=== PATIENT | female | born 1980 | race Caucasian/White ===

== ENCOUNTER 2018-10-18 09:40 | Day surgery (SDC) | payer BC ==
[~2018-10-18 09:40] MED LIST: Dexamethasone 4 MG/ML SDV ONE; HYDROmorphone 0.5 MG/0.5 ML Syringe ONE; Lactated Ringers 1,000 ML IV SCH; Lidocaine 1%/Sod Bicarbonate in NS 8.4% 1 ML Syringe IDERM PRN; Midazolam 1 MG/ML 2 ML SDV ONE; Ondansetron 4 MG/2 ML SDV ONE; Propofol 200 MG/20 ML SDV ONE; Rocuronium 50 MG/5 ML Vial ONE; Sodium Chloride 0.9% 10 ML Syringe FLUSH PRN; ceFAZolin 1 GM Vial ONE; fentaNYL 250 MCG/5 ML SDV ONE
--- NOTE | 2018-10-18 10:13 | PCM.PREANE ---
Preanesthetic Assessment - Anesthesia/Transfusion/Family Hx Anesthesia History: Prior Anesthesia Without Reaction Family History of Anesthesia Reaction: No Transfusion History: No Prior Transfusion(s) - Review of Systems General: No Symptoms Pulmonary: No Symptoms Cardiovascular: Other (HTN, on meds) Other: Reports: Depression, Anxiety - Physical Assessment NPO Status Date: 10/17/18 NPO Status Time: 23:30 Pulse: 97 O2 Sat by Pulse Oximetry: 97 Respiratory Rate: 16 Blood Pressure: 153/96 Vital Signs: Last Vital Signs Temp 37.6 C 10/18/18 09:55 Pulse 97 10/18/18 09:55 Resp 16 10/18/18 09:55 BP 153/96 H 10/18/18 09:55 Pulse Ox 97 10/18/18 09:55 Weight: 92.76 kg ASA Class: 2 Mental Status: Alert & Oriented x3 Airway Class: Mallampati = 2 Dentition: Reports: Normal Dentition Thyro-Mental Finger Breadths: 3 Mouth Opening Finger Breadths: 3 ROM/Head Extension: Full Lungs: Clear to Auscultation, Normal Respiratory Effort - Lab Values: Laboratory Last Values WBC 9.76 K/mm3 (3.98-10.04) 10/13/18 10:34 RBC 5.24 M/mm3 (3.98-5.22) H 10/13/18 10:34 Hgb 15.0 gm/L (11.2-15.7) 10/13/18 10:34 Hct 46.5 % (34.1-44.9) H 10/13/18 10:34 MCV 88.7 fl (79.4-94.8) 10/13/18 10:34 MCH 28.6 pg (25.6-32.2) 10/13/18 10:34 MCHC 32.3 g/dl (32.2-35.5) 10/13/18 10:34 RDW Std Deviation 43.3 fL (36.4-46.3) 10/13/18 10:34 Plt Count 347 K/mm3 (182-369) 10/13/18 10:34 MPV 9.0 fl (9.4-12.3) L 10/13/18 10:34 Neut % (Auto) 67.6 % (34.0-71.1) 10/13/18 10:34 Lymph % (Auto) 19.2 % (19.3-51.7) L 10/13/18 10:34 [place] % (Auto) 9.8 % (4.7-12.5) 10/13/18 10:34 Eos % (Auto) 2.6 (0.7-5.8) 10/13/18 10:34 Baso % (Auto) 0.6 % (0.1-1.2) 10/13/18 10:34 Neut # (Auto) 6.60 K/mm3 (1.56-6.13) H 10/13/18 10:34 Lymph # (Auto) 1.87 K/mm3 (1.18-3.74) 10/13/18 10:34 [place] # (Auto) 0.96 K/mm3 (0.24-0.36) H 10/13/18 10:34 Eos # (Auto) 0.25 K/mm3 (0.04-0.36) 10/13/18 10:34 Baso # (Auto) 0.06 K/mm3 (0.01-0.08) 10/13/18 10:34 Creatinine 1.0 mg/dL (0.55-1.02) 10/13/18 10:34 Est Cr Clr Drug Dosing TNP 10/13/18 10:34 Estimated GFR (MDRD) > 60 mL/min (>60) 10/13/18 10:34 Urine Color Yellow (Yellow) 10/13/18 10:34 Urine Appearance Clear (Clear) 10/13/18 10:34 Urine pH 7.0 (5.0-8.0) 10/13/18 10:34 Ur Specific [place] 1.015 (1.005-1.030) 10/13/18 10:34 Urine Protein Negative (Negative) 10/13/18 10:34 Urine Glucose (UA) Negative (Negative) 10/13/18 10:34 Urine Ketones Negative (Negative) 10/13/18 10:34 Urine Occult Blood Trace-intact (Negative) H 10/13/18 10:34 Urine Nitrite Negative (Negative) 10/13/18 10:34 Urine Bilirubin Negative (Negative) 10/13/18 10:34 Urine Urobilinogen 0.2 (0.2-1.0) 10/13/18 10:34 Ur Leukocyte Esterase Negative (Negative) 10/13/18 10:34 Urine HCG, Qual Negative (NEGATIVE) 10/18/18 09:49 - Allergies Allergies/Adverse Reactions: Allergies Allergy/AdvReac Type Severity Reaction Status Date / Time codeine Allergy Stomach Verified 10/17/18 12:34 Upset sulfamethoxazole Allergy Rash Verified 10/17/18 12:34 [From Bactrim] trimethoprim [From Bactrim] Allergy Rash Verified 10/17/18 12:34 - Blood Blood Available: No Product(s) Available: None - Anesthesia Plan Pre-Op Medication Ordered: None - Acknowledgements Anesthesia Type Planned: General Anesthesia Pt an Appropriate Candidate for the Planned Anesthesia: Yes Alternatives and Risks of Anesthesia Discussed w Pt/Guardian: Yes Pt/Guardian Understands and Agrees with Anesthesia Plan: Yes PreAnesthesia Questionnaire HEENT History: Reports: Other (See Below) Other HEENT History: dental abcess, wears glasses Cardiovascular History: Reports: Hypertension Respiratory History: Reports: Bronchitis, Recurrent Gastrointestinal History: Reports: None Genitourinary History: Reports: UTI, Recurrent GENETIC ENGINEER History: Reports: , Spontaneous , Other (See Below) Other OB/BYN History: dysmenorrhea, hematuria, menorrhagia, vaginal itching, yeast infection, , SAB Musculoskeletal History: Reports: None Neurological History: Reports: None Psychiatric History: Reports: Anxiety, Panic Attack, Other (See Below) Other Psychiatric History: fatigue Endocrine/Metabolic History: Reports: Other (See Below) Other Endocrine/Metabolic History: female hirsutism, hair loss, thyroid nodule, thyromegaly Hematologic History: Reports: None Immunologic History: Reports: None Oncologic (Cancer) History: Reports: None Dermatologic History: Reports: None - Past Surgical History Head Surgeries/Procedures: Reports: None HEENT Surgical History: Reports: Oral Surgery Cardiovascular Surgical History: Reports: None Respiratory Surgical History: Reports: None GI Surgical History: Reports: None Female Surgical History: Reports: D&C Male Surgical History: Reports: None Endocrine Surgical History: Reports: None Neurological Surgical History: Reports: None Musculoskeletal Surgical History: Reports: None Oncologic Surgical History: Reports: None Dermatological Surgical History: Reports: None - SUBSTANCE USE Smoking Status *Q: Former Smoker Recreational Drug Use History: No - HOME MEDS Home Medications: Home Meds ALPRAZolam [Alprazolam] 0.5 mg PO TID PRN 10/17/18 [History] Cetirizine [ZyrTEC] 10 mg PO DAILY PRN 10/17/18 [History] DULoxetine HCl [Duloxetine HCl] 60 mg PO DAILY 10/17/18 [History] Docusate Sodium [Colace] 100 mg PO DAILY 10/17/18 [History] Ibuprofen 200 - 600 mg PO Q6H PRN 10/17/18 [History] Lisinopril 40 mg PO DAILY 10/17/18 [History] - CURRENT (IN HOUSE) MEDS Current Meds: Current Medications Lactated Ringer's (Ringers, Lactated) 1,000 mls @ 125 mls/hr IV ASDIRECTED FRANDY Stop: 10/18/18 23:00 Lidocaine/Sodium Bicarbonate (Buffered Lidocaine 1% In Ns 8.4%) 0.25 ml IDERM ONETIME PRN PRN Reason: Prior to IV Start Stop: 10/18/18 18:00 Sodium Chloride (Saline Flush) 10 ml FLUSH ASDIRECTED PRN PRN Reason: Keep Vein Open Stop: 10/18/18 18:00 Discontinued Medications Cefazolin Sodium (Ancef) Confirm Administered Dose 2 gm .ROUTE .STK-MED ONE Stop: 10/18/18 08:14 Dexamethasone (Dexamethasone) Confirm Administered Dose 4 mg .ROUTE .STK-MED ONE Stop: 10/18/18 08:14 Fentanyl (Sublimaze) Confirm Administered Dose 250 mcg .ROUTE .STK-MED ONE Stop: 10/18/18 08:15 Hydromorphone HCl (Dilaudid) Confirm Administered Dose 0.5 mg .ROUTE .STK-MED ONE Stop: 10/18/18 08:15 Midazolam HCl (Versed 1 Mg/Ml) Confirm Administered Dose 2 mg .ROUTE .STK-MED ONE Stop: 10/18/18 08:15 Ondansetron HCl (Zofran) Confirm Administered Dose 4 mg .ROUTE .STK-MED ONE Stop: 10/18/18 08:14 Propofol (Diprivan 20 Ml) Confirm Administered Dose 200 mg .ROUTE .STK-MED ONE Stop: 10/18/18 08:15 Rocuronium [place] (Zemuron) Confirm Administered Dose 50 mg .ROUTE .STK-MED ONE Stop: 10/18/18 08:14
[2018-10-18] MEDS: Lidocaine 1% with EPINEPHrine 1:100,000 20 ML MDV ONE ×2 (12:08→12:23)
[2018-10-18] MEDS: Sodium Chloride 0.9% 50 ML SDV ONE ×2 (12:08→12:23)
[2018-10-18] MEDS ORDERED: Phenylephrine/Normal Saline 100 MCG/ML 10 ML Syringe ONE (12:17)
[2018-10-18] MEDS ORDERED: HYDROmorphone 0.5 MG/0.5 ML Syringe ONE (12:29)
[2018-10-18] MEDS ORDERED: Glycopyrrolate 0.2 MG/ML SDV ONE (12:49)
[2018-10-18] MEDS ORDERED: Neostigmine Methylsulfate 1 MG/ML 5 ML Syringe ONE (12:49)
[2018-10-18] MEDS ORDERED: Acetaminophen/oxyCODONE 325-5 MG Tab PO PRN (12:59)
[2018-10-18] MEDS ORDERED: Ondansetron 4 MG/2 ML SDV IVPUSH PRN ×2 (12:59→13:25)
[2018-10-18] MEDS ORDERED: Ketorolac 30 MG/ML SDV IVPUSH SCH (13:00)
[2018-10-18] MEDS ORDERED: Propofol 200 MG/20 ML SDV ONE (13:03)
--- NOTE | 2018-10-18 13:06 | PCM.OPNOTE ---
- General Post-Op/Procedure Note Date of Surgery/Procedure: 10/18/18 Operative Procedure(s): Total vaginal strictly with bilateral salpingectomy and subfascial mid-urethral sling procedure Findings: Uterus upper limits normal size. Fallopian tubes and ovaries appeared normal. Patient has a grade 1 cystocele Pre Op Diagnosis: 1. Menorrhagia. 2. Dysmenorrhea. 3. Stress urinary incontinence Post-Op Diagnosis: Same Anesthesia Technique: General ET Tube Other Anesthesia Type: Lidocaine quarter percent with [id number] mL total local Primary Surgeon: Jarvis Rois Secondary Surgeon: Geovany Hubbard Anesthesia Provider: Vaishnavi Kaye Veneer Joiner: Mitchell Lindsey Reason Veneer Joiner Was Necessary: Retraction, assistance, patient safety, quality. Pathology: Uterus, bilateral fallopian tubes in one specimen container Fluid Replacement, Intraop: 1,900 Output, Urine Amount: 200 EBL in mLs: 25 Complications: None Condition: Good Free Text/Narrative:: Surgery duration: 44 minutes Procedure: The patient was placed in supine position on the operating table. She was appropriately consented. General endotracheal anesthesia was accomplished. After positioning, and adequate prep and drape, the procedure was then performed. Sterile speculum was placed in the vagina and cervix was visualized. Cervix was injected with [lidocaine quarter percent with epinephrine ]. [20 cc] used. A full circumference incision was made in the cervical epithelium. The bladder was pushed well back off cervix. Posterior cul-de-sac was then entered sharply without problems. Left uterosacral was crossclamped with a Enseal vessel closure system. The left uterosacral and then the right uterosacral ligament pedicles were developed using the Enseal system. The anterior cul-de-sac was then entered without problems and the uterine vasculature, cardinal ligament and broad ligament then developed using Enseal vessel closure system. The uterus was inverted at this time and upper broad ligament fallopian tube pedicles were crossclamped with Kaveh clamps. Specimen was totally removed. Both these pedicles were then secured with a Kaveh stitch of #1 Vicryl. Left and right fallopian tube were visualized and found to be within normal limits. . Using Enseal vessel closure system both fallopian tubes were then removed and sent with the specimen. The posterior vaginal cuff was run with an 0 Monocryl suture from approximately 2:00 to 10 o'clock position for hemostatic reasons. The patient was found to be hemostatically intact at this time, both ovaries appeared normal and were left in place. Vaginal cuff was closed with running locked suture of 0 MonocrylThe patient's left right. Sub-Fascial, mid urethral sling procedure was then performed. Her bladder was drained with a red rubber catheter. 200 mL of normal urine was removed. The epithelium overlying the urethra was grasped approximately 1 cm from the urethral meatus and approximately 2 cm cephalad from there with Allis clamps. The area of the skin overlying the medial aspect of the obturator foramen on each side just posterior to the origin the abductor longus muscle was marked with a marking pen. These 2 areas and the sub-fascial layer of the vaginal were then infiltrated with lidocaine quarter percent with epinephrine total of approximately 10 mL was used. incisions made in the epithelium overlying the urethra and 2 small stab wounds 3 mm in length were made in the 2 areas of the panty line of the patient. The subfascial planes were adequately dissected bilaterally to allow placement of the mesh. The helical adapter was then placed through the obturator on patient's left side and brought out through the vaginal subfascial plane. Mesh was attached to it and then was pulled back through the obturator foramen. Same was done on the right side. Mesh was then snugged up to the urethra. A Heger Dilator 15 mm in diameter was used as a spacer to place the mesh in a tension- free position. At this point the mesh was cut off at the skin surface and the dilator was removed. The midline epithelium was closed with a short running suture of 3-0 Monocryl. Skin incisions were closed with Dermabond skin glue. These bladder was filled with approximately 240 cc of normal saline to facilitate voiding and therefore discharge home. The patient was returned to supine position, awakened from general endotracheal anesthesia and was discharged from operating room in good.
[2018-10-18] MEDS ORDERED: HYDROmorphone 0.5 MG/0.5 ML Syringe IVPUSH PRN (13:25)
[2018-10-18] MEDS ORDERED: fentaNYL 100 MCG/2 ML SDV IVPUSH PRN (13:25)
[2018-10-18] MEDS ORDERED: diphenhydrAMINE 50 MG/ML SDV IVPUSH PRN (13:25)
--- NOTE | 2018-10-18 13:25 | PCM.POSTAN ---
POST ANESTHESIA ASSESSMENT - MENTAL STATUS Mental Status: Alert, Oriented - VITAL SIGNS Pulse Rate: 110 SaO2: 99 Resp Rate: 18 Blood Pressure: 158/94 Temperature: 37.2 C - RESPIRATORY Respiratory Status: Respiratory Rate WNL, Airway Patent, O2 Saturation Stable, Supplemental Oxygen - CARDIOVASCULAR CV Status: Pulse Rate WNL, Blood Pressure Stable - GASTROINTESTINAL GI Status: No Symptoms - PAIN Pain Score: 0 - POST OP HYDRATION Hydration Status: Adequate & Stable
[2018-10-18] MEDS ORDERED: Ibuprofen 600 MG Tab PO PRN ×2 (14:00→19:00)
[2018-10-18] MEDS: Labetalol 100 MG/20 ML MDV IVPUSH PRN ×2 (14:05→14:23)
[2018-10-18] MEDS ORDERED: Midazolam 1 MG/ML 2 ML SDV IVPUSH PRN (14:09)
== END 2018-10-18 18:00 | disposition home or self-care (01) ==
LOC: JD.SDS 09:40
PROVIDERS: ATTEND Obstetrics & Gynecology
DX: N80.0 Endometriosis of uterus (principal); N83.8 Other noninflammatory disorders of ovary, fallopian tube and broad ligament; N39.3 Stress incontinence (female) (male); N81.10 Cystocele, unspecified; I10 Essential (primary) hypertension; F41.8 Other specified anxiety disorders; L68.0 Hirsutism; Z88.5 Allergy status to narcotic agent; Z88.2 Allergy status to sulfonamides; Z88.1 Allergy status to other antibiotic agents; Z87.891 Personal history of nicotine dependence; Z79.899 Other long term (current) drug therapy
CPT/HCPCS: 00944; 36415; 81003; 81025; 82565; 85025; 86850; 86900; 86901; 87086; A9270-GY; C1771; J0690; J1100; J1170; J2250; J2370; J2405; J2704; J2710; J3010; J3490; J7120

== ENCOUNTER 2020-08-05 09:20 | Emergency (ER) | payer BC ==
--- NOTE | 2020-08-05 09:41 | EDM.PDOC ---
ED HPI GENERAL MEDICAL PROBLEM - General Chief Complaint: Chest Pain Stated Complaint: CHEST PAIN/HIGH BP Time Seen by Provider: 08/05/20 09:38 - History of Present Illness INITIAL COMMENTS - FREE TEXT/NARRATIVE: 40-year-old female presents the emergency room with chest pain. This pain has been going on for the last couple of days. Seems to be worse with deep breathing. It is substernal she denies it being a burning sensation. She has a hard time describing it but it could be achy pressure may be sharp at times. She has not had any other chest problems recently however did have a headache the other night that she attributes to being an ocular migraine she woke up the next morning and everything was fine with regards the headache. She is not have any reflux symptoms. She does not have an active cough at this time . Patient has longstanding hypertension and a strong family history of hypertension her father just from a CVA and he had long standing hypertension as well. Middle Chest Pain Score (Numeric/FACES): 5 - Related Data Allergies Allergy/AdvReac Type Severity Reaction Status Date / Time codeine Allergy Stomach Verified 08/05/20 09:29 Upset sulfamethoxazole Allergy Rash Verified 08/05/20 09:29 [From Bactrim] trimethoprim [From Bactrim] Allergy Rash Verified 08/05/20 09:29 Home Meds: Home Meds ALPRAZolam [Alprazolam] 0.5 mg PO TID PRN 10/17/18 [History] Cetirizine [ZyrTEC] 10 mg PO DAILY PRN 10/17/18 [History] DULoxetine HCl [Duloxetine HCl] 60 mg PO DAILY 10/17/18 [History] Docusate Sodium [Colace] 100 mg PO DAILY 10/17/18 [History] Lisinopril 40 mg PO DAILY 10/17/18 [History] Potassium Chloride [Klor-Con M20] 20 meq PO BID #2 tab.er 08/05/20 [Rx] Past Medical History HEENT History: Reports: Other (See Below) Other HEENT History: dental abcess, wears glasses Cardiovascular History: Reports: Hypertension Respiratory History: Reports: Bronchitis, Recurrent Gastrointestinal History: Reports: None Genitourinary History: Reports: UTI, Recurrent SENIOR DEVOPS ENGINEER History: Reports: , Spontaneous , Other (See Below) Other SENIOR DEVOPS ENGINEER History: dysmenorrhea, hematuria, menorrhagia, vaginal itching, yeast infection, , SAB Musculoskeletal History: Reports: None Neurological History: Reports: None Psychiatric History: Reports: Anxiety, Panic Attack, Other (See Below) Other Psychiatric History: fatigue Endocrine/Metabolic History: Reports: Other (See Below) Other Endocrine/Metabolic History: female hirsutism, hair loss, thyroid nodule, thyromegaly Hematologic History: Reports: None Immunologic History: Reports: None Oncologic (Cancer) History: Reports: None Dermatologic History: Reports: None - Past Surgical History Head Surgeries/Procedures: Reports: None HEENT Surgical History: Reports: Oral Surgery Cardiovascular Surgical History: Reports: None Respiratory Surgical History: Reports: None GI Surgical History: Reports: None Female Surgical History: Reports: D&C Endocrine Surgical History: Reports: None Neurological Surgical History: Reports: None Musculoskeletal Surgical History: Reports: None Oncologic Surgical History: Reports: None Dermatological Surgical History: Reports: None Social & Family History - Tobacco Use Tobacco Use Status *Q: Light Tobacco User Years of Tobacco use: 20 Packs/Tins Daily: 0.2 - Caffeine Use Caffeine Use: Reports: Coffee - Recreational Drug Use Recreational Drug Use: No ED ROS GENERAL - Review of Systems Review Of Systems: See Below Constitutional: Reports: No Symptoms HEENT: Reports: No Symptoms Respiratory: Denies: Shortness of Breath, Wheezing, Cough Cardiovascular: Reports: Chest Pain, Blood Pressure Problem. Denies: Dyspnea on Exertion, Edema Endocrine: Reports: No Symptoms GI/Abdominal: Reports: No Symptoms : Reports: No Symptoms Musculoskeletal: Reports: No Symptoms Neurological: Reports: No Symptoms ED EXAM, GENERAL - Physical Exam Exam: See Below Exam Limited By: No Limitations General Appearance: Alert, No Apparent Distress Head: Atraumatic, Normocephalic Neck: Normal Inspection, Supple, Non-Tender, Full Range of Motion. No: Lymphadenopathy (L), Lymphadenopathy (R) Respiratory/Chest: No Respiratory Distress, Lungs Clear, Normal Breath Sounds Cardiovascular: Regular Rate, Rhythm, No Edema, No Murmur GI/Abdominal: Normal Bowel Sounds, Soft, Non-Tender Back Exam: Normal Inspection. No: CVA Tenderness (L), CVA Tenderness (R) Extremities: Normal Inspection, No Pedal Edema Neurological: Alert, Oriented, Normal Cognition Psychiatric: Normal Affect, Normal Mood #1 Interpretation EKG Date: 08/05/20 Rhythm: NSR [place]: Normal P-Wave: Present QRS: Normal ST-T: Normal QT: Normal Comparison: NA - No Prior EKG EKG Interpretation Comments: EKG evidence of left atrial enlargement otherwise normal EKG Course - Vital Signs Last Recorded V/S: Last Vital Signs Temp 36.8 C 08/05/20 09:25 Pulse 102 H 08/05/20 09:25 Resp 16 08/05/20 09:25 BP 202/105 H 08/05/20 09:25 Pulse Ox 96 08/05/20 09:25 - Orders/Labs/Meds Labs: Laboratory Tests 08/05/20 08/05/20 08/05/20 Range/Units 09:35 09:35 09:35 WBC 9.13 (3.98-10.04) K/mm3 RBC 5.49 H (3.98-5.22) M/mm3 Hgb 16.1 H (11.2-15.7) gm/dl Hct 49.5 H (34.1-44.9) % MCV 90.2 (79.4-94.8) fl MCH 29.3 (25.6-32.2) pg MCHC 32.5 (32.2-35.5) g/dl RDW Std Deviation 43.7 (36.4-46.3) fL Plt Count 416 H (182-369) K/mm3 MPV 8.9 L (9.4-12.3) fl Neut % (Auto) 67.4 (34.0-71.1) % Lymph % (Auto) 20.3 (19.3-51.7) % [place] % (Auto) 8.9 (4.7-12.5) % Eos % (Auto) 2.3 (0.7-5.8) Baso % (Auto) 0.9 (0.1-1.2) % Neut # (Auto) 6.16 H (1.56-6.13) K/mm3 Lymph # (Auto) 1.85 (1.18-3.74) K/mm3 [place] # (Auto) 0.81 H (0.24-0.36) K/mm3 Eos # (Auto) 0.21 (0.04-0.36) K/mm3 Baso # (Auto) 0.08 (0.01-0.08) K/mm3 D-Dimer, Quantitative < 0.19 L (0.19-0.50) mg/L Sodium 140 (136-145) mEq/L Potassium 3.4 L (3.5-5.1) mEq/L Chloride 102 (98-107) mEq/L Carbon Dioxide 28 (21-32) mEq/L Anion Gap 13.4 (5-15) BUN 10 (7-18) mg/dL Creatinine 0.9 (0.55-1.02) mg/dL Est Cr Clr Drug Dosing 76.23 mL/min Estimated GFR (MDRD) > 60 (>60) mL/min BUN/Creatinine Ratio 11.1 L (14-18) Glucose 103 (74-106) mg/dL Calcium 9.0 (8.5-10.1) mg/dL Total Bilirubin 0.5 (0.2-1.0) mg/dL AST 16 (15-37) U/L ALT 30 (14-59) U/L Alkaline Phosphatase 86 (46-116) U/L Troponin I < 0.017 (0.00-0.056) ng/mL Total Protein 7.9 (6.4-8.2) g/dl Albumin 3.7 (3.4-5.0) g/dl Globulin 4.2 gm/dL Albumin/Globulin Ratio 0.9 L (1-2) Amylase 27 (25-115) U/L Lipase 90 (73-393) U/L HCG, Qual (NEGATIVE) 08/05/20 Range/Units 09:35 WBC (3.98-10.04) K/mm3 RBC (3.98-5.22) M/mm3 Hgb (11.2-15.7) gm/dl Hct (34.1-44.9) % MCV (79.4-94.8) fl MCH (25.6-32.2) pg MCHC (32.2-35.5) g/dl RDW Std Deviation (36.4-46.3) fL Plt Count (182-369) K/mm3 MPV (9.4-12.3) fl Neut % (Auto) (34.0-71.1) % Lymph % (Auto) (19.3-51.7) % [place] % (Auto) (4.7-12.5) % Eos % (Auto) (0.7-5.8) Baso % (Auto) (0.1-1.2) % Neut # (Auto) (1.56-6.13) K/mm3 Lymph # (Auto) (1.18-3.74) K/mm3 [place] # (Auto) (0.24-0.36) K/mm3 Eos # (Auto) (0.04-0.36) K/mm3 Baso # (Auto) (0.01-0.08) K/mm3 D-Dimer, Quantitative (0.19-0.50) mg/L Sodium (136-145) mEq/L Potassium (3.5-5.1) mEq/L Chloride (98-107) mEq/L Carbon Dioxide (21-32) mEq/L Anion Gap (5-15) BUN (7-18) mg/dL Creatinine (0.55-1.02) mg/dL Est Cr Clr Drug Dosing mL/min Estimated GFR (MDRD) (>60) mL/min BUN/Creatinine Ratio (14-18) Glucose (74-106) mg/dL Calcium (8.5-10.1) mg/dL Total Bilirubin (0.2-1.0) mg/dL AST (15-37) U/L ALT (14-59) U/L Alkaline Phosphatase (46-116) U/L Troponin I (0.00-0.056) ng/mL Total Protein (6.4-8.2) g/dl Albumin (3.4-5.0) g/dl Globulin gm/dL Albumin/Globulin Ratio (1-2) Amylase (25-115) U/L Lipase (73-393) U/L HCG, Qual Negative (NEGATIVE) Meds: Medications Discontinued Medications Generic Name Dose Route Start Last Admin Trade Name Freq PRN Reason Stop Dose Admin Potassium Chloride 40 meq 08/05/20 11:30 08/05/20 11:48 Klor-Con M20 PO 08/05/20 11:31 40 meq ONETIME ONE Administration - Re-Assessments/Exams Free Text/Narrative Re-Assessment/Exam: 08/05/20 11:34 Chest x-ray is unremarkable EKG shows no acute changes laboratory evaluation shows a normal D-dimer normal troponin of note is her potassium is a little low at 3.4. We will give 40 mEq potassium now and have the patient take 20 mEq tomorrow for 2 doses. The patient should follow-up in the clinic this next week for follow-up on her blood pressure and to discuss of cardiac stress testing is indicated. Her heart score is 1 and I did discuss the implication this. The patient will follow up with her regular provider and discuss further cardiac testing if they believe it is in her best interest to go down this path. Departure - Departure Time of Disposition: 11:40 Disposition: Home, Self-Care 01 Clinical Impression: Chest pain, Hypertension, Hypokalemia Prescriptions: Potassium Chloride [Klor-Con M20] 20 meq PO BID #2 tab.er Instructions: Hypokalemia, Nonspecific Chest Pain, Adult, [id number], Hypertension, Adult, [id number] Referrals: Mya Richey TWITCHELL OPERATOR [Primary Care Provider] - Forms: ED Department Discharge Additional Instructions: Return to the emergency room with any questions problems or worsening symptoms. Do not use ibuprofen Aleve naproxen or medications in this class. Use Tylenol as needed for discomfort 1000 mg 4 times a day as your maximum dose. Follow-up with your regular healthcare provider in about a week for recheck of your blood pressure and discuss possible cardiac stress testing and getting your potassium rechecked. Take a baby aspirin, 81 mg daily. Sepsis Event Note (ED) - Evaluation Sepsis Screening Result: No Definite Risk
--- NOTE | 2020-08-05 10:30 | CR ---
Chest: Portable view of the chest was obtained. Comparison: No prior chest imaging is available. Heart size and mediastinum are normal. Lungs are clear with no acute parenchymal change. No acute osseous finding is appreciated. Impression: 1. Nothing acute is seen on portable chest x-ray. Diagnostic code #1
[2020-08-05] MEDS ORDERED: Potassium Chloride 20 MEQ Tab.ER PO ONE (11:30)
== END 2020-08-05 11:54 | disposition home or self-care (01) ==
LOC: JD.ED 09:20
DX: I10 Essential (primary) hypertension (principal); E87.6 Hypokalemia; Z88.5 Allergy status to narcotic agent; Z88.2 Allergy status to sulfonamides; Z88.1 Allergy status to other antibiotic agents; Z79.899 Other long term (current) drug therapy; Z72.0 Tobacco use
CPT/HCPCS: 36415; 71045; 80053; 82150; 83690; 84484; 84703; 85025; 85379; 93005; 99285; A9270; 93010; 99284